=== PATIENT | female | born 1940 | race Caucasian/White ===

== ENCOUNTER 2019-04-20 12:05 | Emergency (ER) | payer MEDICARE, SELFPAY ==
[2019-04-20] VITALS (54 sets, daily range): BP systolic 45–186; BP diastolic 13–126; PULSE 61–89; RESP 11–26; TEMP 36.8–36.9; O2SAT 98–100
--- NOTE | 2019-04-20 12:23 | DI.RAD_ITS ---
EXAM: XR CHEST 2V PA AND LATERAL INDICATION: cva. COMPARISON: No exams were available for comparison TECHNIQUE: 2D digital imaging was performed. FINDINGS: Heart is at the upper limits of normal in size. Lungs are grossly clear. No pleural effusion seen. Moderate pulmonary hyperinflation noted. IMPRESSION: Cardiomegaly and COPD. No evidence of acute process
--- NOTE | 2019-04-20 12:33 | W.ED.GENAD ---
Discharge Plan Disposition Patient Disposition: [facility] Condition: Critical Discharge Details Chief Complaint: GenMedical Clinical Impression: Acute CVA (cerebrovascular accident), Acute electrocardiogram changes, Elevated troponin Primary Care Provider: Indra Acosta ED Provider: Cecilio Higgins Home Meds and New Rx's Prescriptions: No Action diltiazem HCl 240 mg Tablet Extended Release 24 Hr 240 mg PO DAILY AM RF: 0 nateglinide 60 mg Tablet 60 mg PO TID PRN PRNRF: 0 Discharge Data Discharge Date/Time-TO BE ENTERED AT DEPARTURE: 04/20/19 19:17 Medical Decision Making 12:35 --78-year-old female with history of hypertension and diabetes here with chief complaint of unsteadiness on her feet, difficulty ambulating over the past 2 to 3 days. Significant weakness left side noted on exam. Patient is hypertensive. Concern for CVA. Plan to obtain CT and CTA. 13:10 -- ECG reviewed and interpreted by me: Sinus rhythm 77 bpm, left axis deviation, right bundle branch block present, ST depressions are noted lead I, aVL, subtle ST elevation noted V4 to V6. Troponin is elevated at 0.15. This is in the setting of an elevated creatinine of 4.27. Patient has no chest pain or shortness of breath at this time. No old ECG or labs for comparison. CTA of the head canceled given renal function. Plan to proceed with CT of the head. -- CT concerning for stroke. Spoke with radiologist and agree with MRI brain, MRA head and neck. Will give asa 325mg. --MRI interpreted by radiology: Bilateral stroke and also giant rt ICA aneurysm with calcification and no active bleeding. --[place] [facility] [place]. MRI and CT sent for review. 17:10 --I spoke with Dr. Kitchen, [place] [facility] [place] ED presentation and course including all diagnostics and labs she will accept the patient in transfer. She recommends giving labetolol 10mg IV to reduce SBP to 150-160. I received prior 2009 ecg from [facility] [place] and PCP note. Prior Cr 2017 was 1.97. Prior ECG does note right bundle branch block, ECG with significant artifact and difficult to interpret. I am concerned for new ecg changes. Repeat trop remains elevated. Patient reassessed and no change. Still with no CP/SOB. Will hold heparin at this time given large aneurysm.. -- Repeat BP improved. Awaiting transfer bed confirmation. Medical Records Medical records reviewed: Yes I reviewed the patient's medical records. Lab Data Lab results reviewed: Yes I reviewed the patient's lab results. Labs: Laboratory Tests Range/Units 04/20/19 04/20/19 04/20/19 12:35 12:35 15:45 WBC (4.4-10.8) k/cumm 7.69 RBC (4.00-5.20) m/cumm 3.94 L Hgb (12.0-15.5) g/dL 11.5 L Hct (36.0-46.0) % 35.7 L MCV (80-95) fL 90.6 MCH (27.0-33.0) pg 29.2 MCHC (32.0-36.0) g/dL 32.2 RDW (11.7-14.6) % 13.0 Plt Count (130-400) x1000/uL 213 MPV (8.0-11.0) fL 11.0 Immature Gran % 0.0 Neutrophils % 74.8 Lymphocytes % 15.2 Monocytes % 5.6 Eosinophils % 4.0 Basophils % 0.4 Absolute Neutrophils (1.2-6.7) k/cumm 5.75 Absolute Lymphocytes (1.2-3.4) k/cumm 1.17 L Absolute Monocytes (0.11-0.7) k/cumm 0.43 Absolute Eosinophils (0.0-0.7) k/cumm 0.31 Absolute Basophils (0.0-0.2) k/cumm 0.03 Sodium (136-145) mmol/L 139 Potassium (3.5-5.1) mmol/L 4.4 Chloride (98-107) mmol/L 104 Carbon Dioxide (21.0-32.0) mmol/L 20.4 L Anion Gap (3-11) mmol/L 14.6 H BUN (7-18) mg/dL 61 H Creatinine (0.55-1.02) mg/dL 4.27 H* Estimated GFR/1.73 m2 (mL/min/1.73m2) 10.10 Glucose (70-100) mg/dL 139 H Calcium (8.5-10.1) mg/dL 8.9 Magnesium (1.8-2.4) mg/dL 2.5 H Total Bilirubin (0.2-1.0) mg/dL 0.5 AST (15-37) U/L 25 ALT (14-59) U/L 21 Alkaline Phosphatase (46-116) U/L 83 Troponin I (0.00-0.06) ng/mL 0.15 H* 0.16 H* Total Protein (6.4-8.2) g/dL 7.7 Albumin (3.4-5.0) g/dL 3.3 L HPI General Mode of arrival: ambulatory. Date/Time Provider Initiated Documentation: 04/20/19 12:21. Limitations to Documentation: no limitations. Information obtained by: patient. HPI Narrative: 78-year-old female with history of hypertension here with chief complaint of dizziness that started 3 days ago. Patient notes dizziness is further characterized as difficulty ambulating as a result of numbness/weakness affecting her left side. Patient notes she is had trouble walking for the past 3 days and has been using a walker. She typically does not use a walker. She notes she is needed assistance sitting and standing from the toilet over the same period of time. Symptoms are severe. No modifiers. No associated headache. No chest pain. Related Data Home Medications Medication Instructions Recorded Confirmed diltiazem HCl 240 mg PO DAILY AM 04/20/19 04/20/19 nateglinide 60 mg PO TID PRN PRN 04/20/19 04/20/19 Allergies Allergy/AdvReac Type Severity Reaction Status Date / Time No Known Allergies Allergy Unverified 04/20/19 18:58 General Stated Complaint: GenMedical JACINTA: 3 Review of Systems Review of Systems ROS Unobtainable: All systems reviewed & are unremarkable except as noted in HPI and below Constitutional Constitutional: Denies fever(s) and Denies headache(s) ENT Ears, Nose, Mouth, and Throat: Reports dizziness and Denies headache(s) Cardiovascular Cardiovascular: Denies chest pain and Denies dyspnea Respiratory Respiratory: Denies dyspnea Neurologic Neurologic: Reports dizziness and Denies headache(s) [facility] Medical History (Updated 04/20/19 @ 12:36 by Cecilio Higgins MD) Diabetes (Chronic) Hypertension (Chronic) Social History Do you feel safe at home: Yes Do you feel safe in your relationship?: Yes Exam Const General: cooperative and no acute distress HENMT Head: normocephalic and atraumatic Mouth: moist mucous membranes Eyes Conjunctivae: normal conjunctivae Sclera: normal sclerae EOM: EOM intact bilaterally Neck Neck: trachea midline and supple Resp Auscultation: clear to auscultation bilaterally, no rales, no rhonchi and no wheezes Cardio Jugular venous pressure: no JVD Rate: regular rate and not tachycardic Rhythm: regular rhythm GI Palpation: soft, not firm, no guarding, no masses, not rigid and nontender Skin General skin exam: no rashes or lesions noted Neuro General: alert, awake, oriented x3 and tone normal Cranial Nerves: CN's II-XI intact bilaterally Cognition: normal cognition Speech: speech normal Motor: other (4/5 weakness LUE and LLE) Sensory Exam: no sensory deficits noted Extrem General: no edema Psych Appearance: grossly normal Mental Status: mental status grossly normal Course Vital Signs Vital signs: Vital Signs Temperature 36.8 C 04/20/19 12:08 Pulse 83 04/20/19 12:08 Respiratory Rate 20 04/20/19 12:08 Blood Pressure 183/72 H 04/20/19 12:08 Pulse Oximetry 99 04/20/19 12:08 Temperature 36.8 C 04/20/19 12:08 Temperature Source Temporal Artery Scan 04/20/19 12:08 Pulse 83 04/20/19 12:08 Respiratory Rate 20 04/20/19 12:11 Respiratory Effort Non-Labored 04/20/19 12:11 Respiratory Depth Normal 04/20/19 12:11 Respiratory Pattern Normal 04/20/19 12:11 Blood Pressure 183/72 H 04/20/19 12:08 Blood Pressure Position Sitting 04/20/19 12:08 Pulse Oximetry 99 04/20/19 12:08 Oxygen Delivery Method Room Air 04/20/19 12:08 Oxygen Flow Rate 0 04/20/19 12:08 Pain Level 0 04/20/19 12:08 Critical Care Time Critical Care Time Critical Care Time: Yes Total Critical Care Time: 45 Attestation: I spent greater than 45 minutes addressing this patient's immediate life threats.
[2019-04-20 12:42] LABS: Absolute Basophil Count 0.03 k/cumm (0.0-0.2); Absolute Eosinophil Count 0.31 k/cumm (0.0-0.7); Absolute Lymphocyte Count 1.17 k/cumm (1.2-3.4); Absolute Monocyte Count 0.43 k/cumm (0.11-0.7); Absolute Neutrophil Count 5.75 k/cumm (1.2-6.7); Basophils % 0.4; HCT 35.7 % (36.0-46.0); HGB 11.5 g/dL (12.0-15.5); Lymphocytes % 15.2; Mean Corp. HGB Concentration 32.2 g/dL (32.0-36.0); Mean Corpuscular Hemoglobin 29.2 pg (27.0-33.0); Mean Corpuscular Volume 90.6 fL (80-95); Monocytes % 5.6; Neutrophils % 74.8; Platelet Count 213 x1000/uL (130-400); RBC 3.94 m/cumm (4.00-5.20); White Blood Cell Count 7.69 k/cumm (4.4-10.8)
[2019-04-20 13:06] LABS: ALT 21 U/L (14-59); AST 25 U/L (15-37); Albumin 3.3 g/dL (3.4-5.0); Alkaline Phosphatase 83 U/L (46-116); Anion Gap 14.6 mmol/L (3-11); BUN 61 mg/dL (7-18); Bilirubin, Total 0.5 mg/dL (0.2-1.0); CO2 20.4 mmol/L (21.0-32.0); Calcium 8.9 mg/dL (8.5-10.1); Chloride 104 mmol/L (98-107); Glucose 139 mg/dL (70-100); Magnesium 2.5 mg/dL (1.8-2.4); Potassium 4.4 mmol/L (3.5-5.1); Sodium 139 mmol/L (136-145); Total Protein 7.7 g/dL (6.4-8.2)
[2019-04-20 13:08] LABS: CREATININE 4.27 mg/dL (0.55-1.02); Troponin I 0.15 ng/mL (0.00-0.06)
--- NOTE | 2019-04-20 14:00 | DI.CT_ITS ---
EXAM: CT HEAD WO CLINICAL HISTORY: left sided weakness. TECHNIQUE: Noncontrast cranial CT was performed. COMPARISON: No exams were available for comparison FINDINGS: There is moderate generalized cerebral atrophy particularly in the frontal regions. No evidence of a cute intracranial hemorrhage, mass effect or midline shift. Note is made of an area of focal decreas ed attenuation in the ledbetter radiata on the right in the frontal lobe. Mild patchy decreased attenua tion seen in periventricular white matter elsewhere. The orbital structures appear intact. Note is made of an apparent rim calcified region corresponding to the course of the horizontal segment of the left internal carotid artery suggesting an ICA aneury sm on the left. This extends from the proximal horizontal segment to the proximal cavernous segment of the ICA. This measures about 29 millimeters in length, 17 millimeters in height, and 16 millimet ers in width. No evidence of acute hemorrhage associated with this finding. No other significant megan ny abnormality seen. IMPRESSION: 1. Cerebral atrophy and microvascular ischemic changes. 2. Abnormally decreased attenuation in ledbetter radiata on the right, question acute or subacute infarc t. 3. 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 Additional evaluation with brain MRI and MRA recommended
--- NOTE | 2019-04-20 14:25 | DI.MRI_ITS ---
EXAM: MR ANGIO BRAIN WO CLINICAL HISTORY: left-sided weakness. TECHNIQUE: Multiplanar multisequence MRI was performed. MR angiography of the brain was performed a ccording to the usual protocol. COMPARISON: No exams were available for comparison FINDINGS: Visualized right internal carotid artery unremarkable. Visualized basilar artery unremarkable. Midd le cerebral, anterior cerebral and posterior cerebral arteries unremarkable in appearance with no perfecto dence of occlusion or aneurysm. I would note that motion artifact limits evaluation of potential bhargav nosis in the visualized region. There is an apparent aneurysm of the left internal carotid artery extending from the proximal horizon kg segment to the proximal cavernous segment. Please see accompanying brain MRI report. IMPRESSION: A large left ICA petrous aneurysm. No additional significant findings. Please see accompanying brain MRI report
--- NOTE | 2019-04-20 15:00 | DI.MRI_ITS ---
EXAM: MR BRAIN WO CLINICAL HISTORY: left-sided weakness. TECHNIQUE: Multiplanar multisequence MRI was performed. MRI examination the brain was performed acc ording to usual protocol. COMPARISON: MR ANGIO BRAIN WO from 04/20/2019 FINDINGS: Today's CT examination showed question decreased attenuation in ledbetter radiata on the right and this corresponds to an area of abnormal signal seen on T2 and FLAIR imaging in the right frontal lobe vijay na radiata posteriorly. This area also corresponds to an area of diffusion restriction with associat ed ADC map decreased signal and the findings are highly suggestive of acute/subacute cerebral infarct ion. Additionally there are small focal areas of diffusion restriction in left posterior temporopari etal region and in high right frontoparietal region, also consistent with areas of infarction. No ot her significant signal abnormality identified in the brain. There is intermediate signal heterogeneous in character associated with the area of suspected left IC A aneurysm consistent with an aneurysm with signal loss in the calcified rim. There loss of the norm al flow void in the petrous portion of the left ICA and reconstitution of flow void in the proximal c avernous ICA on the left. No other abnormality of flow void is seen. Orbital structures appear inta ct. Internal auditory structures appear normal bilaterally. No evidence of intracranial hemorrhage on susceptibility weighted imaging. IMPRESSION: 1. Findings consistent with acute/subacute infarctions in the right and left hemispheres as described above, the largest area of infarction is in the right ledbetter radiata. 2. Findings consistent with giant aneurysm left ICA as noted on today's noncontrast CT and MR angiogr am exams. Additional evaluation with catheter angiography is recommended
--- NOTE | 2019-04-20 15:16 | DI.MRI_ITS ---
EXAM: MR ANGIO NECK WO CLINICAL HISTORY: left-sided weakness. TECHNIQUE: Multiplanar multisequence MRI was performed. MR angiography of the cervical region was performed according to the usual protocol. COMPARISON: No exams were available for comparison FINDINGS: There is significant motion artifact which limits the examination. No gross abnormality of the visua lized portions of the common carotid arteries on either side. Left internal carotid artery partially obscured by artifact and inadequately visualized. Right internal carotid artery grossly unremarkabl e. IMPRESSION: An abnormality is noted in the horizontal portion of the left internal carotid artery, please see acc ompanying brain MRA report.
[2019-04-20] MEDS: Aspirin 325 MG TAB PO (15:50)
[2019-04-20 16:15] LABS: Troponin I 0.16 ng/mL (0.00-0.06)
--- NOTE | 2019-04-20 16:48 | NUR.NOTE ---
pt to commode with a two person assist . she was unsteady.Nursing Note:
[2019-04-20] MEDS: Labetalol 100 MG/20 ML VIAL 10 MG IVP (17:36)
--- NOTE | 2019-04-20 18:57 | NUR.NOTE ---
Nursing Note: report given Halcassiea. manufacturing shift supervisor RN
== END 2019-04-20 19:17 | disposition short-term general hospital (02) ==
PROVIDERS: Emergency Provider Student in an Organized Health Care Education/Training Program; PCP Family Medicine
DX: G81.94 Hemiplegia, unspecified affecting left nondominant side (principal); R26.2 Difficulty in walking, not elsewhere classified; R42 Dizziness and giddiness; E11.9 Type 2 diabetes mellitus without complications; I10 Essential (primary) hypertension
CPT/HCPCS: 36415; 70544; 70547; 80053; 93005; 96374; 99285; 70450; 70551; 71046; 83735; 84484; 85025; 93010; 99284

== ENCOUNTER 2019-11-10 14:59 | Outpatient (CLI) | payer MEDICARE, SELFPAY ==
[2019-11-10 15:41] LABS: Abs Immature Grans 0.01 k/cumm (0.0-0.09); Absolute Basophil Count 0.01 k/cumm (0.0-0.2); Absolute Eosinophil Count 0.23 k/cumm (0.0-0.7); Absolute Lymphocyte Count 0.77 k/cumm (1.2-3.4); Absolute Monocyte Count 0.24 k/cumm (0.11-0.7); Absolute Neutrophil Count 4.63 k/cumm (1.2-6.7); Basophils % 0.2; Eosinophils % 3.9; HCT 23.5 % (36.0-46.0); HGB 7.9 g/dL (12.0-15.5); Immature Grans % 0.2 %; Lymphocytes % 13.1; Mean Corp. HGB Concentration 33.6 g/dL (32.0-36.0); Mean Corpuscular Hemoglobin 31.1 pg (27.0-33.0); Mean Corpuscular Volume 92.5 fL (80-95); Mean Platelet Volume 9.9 fL (8.0-11.0); Monocytes % 4.1; Neutrophils % 78.5; Platelet Count 255 x1000/uL (130-400); RBC 2.54 m/cumm (4.00-5.20); RBC Distribution Width 11.5 % (11.7-14.6); White Blood Cell Count 5.89 k/cumm (4.4-10.8)
[2019-11-10 15:52] LABS: Bilirubin Negative (Negative); Blood Small (Negative); Clarity Clear (Clear); Glucose 250 mg/dL (Negative); Ketones Negative (Negative); Leukocyte Esterase Trace (Negative); Nitrite Negative (Negative); Urobilinogen 0.2 EU/dL (Up TO 0.2)
[2019-11-10 16:02] LABS: RBC 0-2 HPF (0-2)
[2019-11-10 16:03] LABS: Bacteria Rare HPF (Negative); C & S Indicated? Yes; Crystals Negative HPF (Negative); Epithelial Cells Moderate HPF (Negative); Mucus Negative (Negative); Other Cells Few Transitional (Negative)
[2019-11-10 16:12] LABS: Anion Gap 12.3 mmol/L (3-11); CO2 18.7 mmol/L (21.0-32.0); Chloride 96 mmol/L (98-107); Estimated GFR 6.24 (mL/min/1.73m2); Glucose 202 mg/dL (74-106); Sodium 127 mmol/L (136-145)
[2019-11-10 16:47] LABS: BUN 100 mg/dL (7-18); CREATININE 6.46 mg/dL (0.55-1.02)
[2019-11-10 16:48] LABS: Potassium 6.8 mmol/L (3.5-5.1)
[2019-11-11 14:40] LABS: Albumin 56.8 % (55.8-66.1); Total Protein 5.9 g/dL (6.3-8.2)
== END 2019-11-10 15:19 ==
PROVIDERS: PCP Family Medicine; Visit Provider Internal Medicine Nephrology
DX: N17.9 Acute kidney failure, unspecified (principal); I45.10 Unspecified right bundle-branch block; I25.2 Old myocardial infarction; R94.31 Abnormal electrocardiogram [ECG] [EKG]; R00.1 Bradycardia, unspecified
CPT/HCPCS: 36415; 80048; 81003; 81015; 84165; 85025; 87086; 93005; 93010

== ENCOUNTER → 2020-06-26 09:09 | Outpatient (BNVA) | payer MEDICARE, BC, SELFPAY | PROVIDERS: PCP Family Medicine; Referring Provider Family Medicine; Visit Provider Surgery | DX: N18.6 End stage renal disease (principal); Z99.2 Dependence on renal dialysis; E11.22 Type 2 diabetes mellitus with diabetic chronic kidney disease; Z45.2 Encounter for adjustment and management of vascular access device; I12.9 Hypertensive chronic kidney disease with stage 1 through stage 4 chronic kidney disease, or unspecified chronic kidney disease | CPT/HCPCS: 36590; 99202; 99213 ==

== ENCOUNTER 2021-05-20 10:25 | Outpatient (REF) | payer MEDICARE, BC, SELFPAY ==
[2021-05-20 15:10] LABS: Vitamin B12 675 pg/mL (193-986)
[2021-05-20 15:57] LABS: Hemoglobin A1C 5.3 % (<5.7)
[2021-05-21 10:00] LABS: Hepatitis B Surface Ag Negative (Negative)
[2021-05-21 10:45] LABS: Hepatitis C Ab w Rflx HCV PCR Negative (Negative)
== END 2021-05-20 10:26 | disposition home or self-care (01) ==
LOC: LBN 10:25
PROVIDERS: PCP Family Medicine; Visit Provider Family Medicine
DX: E53.8 Deficiency of other specified B group vitamins (principal); K74.60 Unspecified cirrhosis of liver; E11.9 Type 2 diabetes mellitus without complications
CPT/HCPCS: 86803; 87340; 82607; 83036; 85610

== ENCOUNTER → 2021-05-30 08:36 | Outpatient (BNVA) | payer MEDICARE, BC, SELFPAY | PROVIDERS: PCP Family Medicine; Referring Provider Family Medicine; Visit Provider Surgery | DX: N18.6 End stage renal disease (principal); Z99.2 Dependence on renal dialysis; Z45.2 Encounter for adjustment and management of vascular access device | CPT/HCPCS: 36589; 99212 ==